=== PATIENT | female | born 1980 | race Two or more races ===

== ENCOUNTER 2018-06-20 07:45 | Emergency (ER) | payer SELFPAY ==
[~2018-06-20] VITALS: Ht 160 cm; Wt 83.0 kg
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
[2018-06-20] MEDS ORDERED: IBUPROFEN 600 MG TABLET PO ONE ×2 (07:59→08:00)
--- NOTE | 2018-06-20 09:11 | NUR ---
DR BYERS AT BS FOR EVAL.
--- NOTE | 2018-06-20 09:24 | NUR ---
Patient discharged to home in stable condition. Written and verbal after care instructions given. Patient verbalizes understanding of instruction.
[2018-06-20 09:27] VITALS: BP 125/75
== END 2018-06-20 09:27 | disposition home or self-care (01) ==
LOC: ER 07:46
DX: S39.012A Strain of muscle, fascia and tendon of lower back, initial encounter (principal); S60.221A Contusion of right hand, initial encounter; S30.1XXA Contusion of abdominal wall, initial encounter; V49.49XA Driver injured in collision with other motor vehicles in traffic accident, initial encounter; Y93.89 Activity, other specified; Y92.410 Unspecified street and highway as the place of occurrence of the external cause; Y99.8 Other external cause status
CPT/HCPCS: 72131-TC; 73130-TC; A4606; Z7610